=== PATIENT | male | born 1980 | race Caucasian/White ===

== ENCOUNTER 2020-05-23 10:19 | Emergency (ER) | payer BC ==
--- NOTE | 2020-05-23 11:36 | EDM.PDOC ---
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 Treatments [employer]KEY TRA[employer]ER: Reports: Dressing(s) Right Lower Leg Pain Score (Numeric/FACES): 4 - Related Data Allergies Allergy/AdvReac Type Severity Reaction Status Date / Time No Known Allergies Allergy Verified 05/23/20 10:26 Home Meds: Home Meds Omeprazole [Prilosec] 40 mg PO DAILY PRN 08/16/14 [History] Lisinopril/Hydrochlorothiazide [Lisinopril-Hctz 20-12.5 mg Tab] 1 tab PO DAILY 05/23/20 [History] amLODIPine Besylate [Amlodipine Besylate] 10 mg PO DAILY 05/23/20 [History] cephALEXin [Cephalexin] 500 mg PO TID #30 tablet 05/23/20 [Rx] Past Medical History Cardiovascular History: Reports: Hypertension Gastrointestinal History: Reports: GERD Endocrine/Metabolic History: Reports: Obesity/BMI 30+ Social & Family History - Family History Family Medical History: No Pertinent Family History - Tobacco Use Tobacco Use Status *Q: Never Tobacco User - Caffeine Use Caffeine Use: Reports: None - Recreational Drug Use Recreational Drug Use: No ED ROS GENERAL - Review of Systems Review Of Systems: See Below Constitutional: Reports: No Symptoms HEENT: Reports: No Symptoms Respiratory: Reports: No Symptoms Cardiovascular: Reports: No Symptoms Endocrine: Reports: No Symptoms GI/Abdominal: Reports: No Symptoms : Reports: No Symptoms Musculoskeletal: Reports: No Symptoms Skin: Reports: Wound ED EXAM, SKIN/RASH Exam: See Below Exam Limited By: No Limitations General Appearance: Alert, No Apparent Distress Ears: Normal External Exam, Normal Canal Nose: Normal Inspection, Normal Mucosa Throat/Mouth: Normal Inspection Head: Atraumatic, Normocephalic Neck: Normal Inspection, Supple Respiratory/Chest: No Respiratory Distress, Lungs Clear Cardiovascular: Normal Peripheral Pulses, Regular Rate, Rhythm, No Edema, No JVD, No Murmur GI/Abdominal: Normal Bowel Sounds, Soft, Non-Tender Back Exam: Normal Inspection, Full Range of Motion Extremities: Normal Inspection, Normal Range of Motion, Non-Tender Neurological: Alert, Oriented, CN II-XII Intact, Normal Cognition ED SKIN PROCEDURES - Laceration/Wound Repair Right Leg Appearance: Subcutaneous Distal NVT: Neuro & Vascular Intact Anesthetic Type: Local Local Anesthesia - Lidocaine (Xylocaine): 2% Plain Local Anesthetic Volume: 3cc Skin Prep: Chlorhexidine (Hibiciens) Closed with: Sutures Lac/Wound length In cm: 8 Suture Size: 3-0 # of Sutures: 13 Suture Type: Nylon Course - Vital Signs Text/Narrative:: UTD with immunization Last Recorded V/S: Last Vital Signs Temp Pulse 65 05/23/20 11:00 Resp 16 05/23/20 11:00 BP 135/82 05/23/20 11:00 Pulse Ox 98 05/23/20 11:00 Departure - Departure Time of Disposition: 11:35 Disposition: Home, Self-Care 01 Condition: Good Clinical Impression: Laceration - Discharge Information Prescriptions: cephALEXin [Cephalexin] 500 mg PO TID #30 tablet Instructions: Laceration Care, Adult, [id number] Referrals: Baldemar Martin PA [Primary Care Provider] - Forms: ED Department Discharge Additional Instructions: Please read discharge instructions on laceration and wound care No need to apply an antibiotic ointment because you are taking an oral antibiotics for 10 days Take ibuprofen 800 mg with tylenol 1000 mg every 8 hours as needed for pain Keflex/cephalexin 500 mg3 times daily for 10 days Removal of suture in 14 days Sepsis Event Note (ED) - Evaluation Sepsis Screening Result: No Definite Risk
[2020-05-23 12:39] VITALS: BP 135/82; PULSE 65
== END 2020-05-23 11:50 | disposition home or self-care (01) ==
LOC: FB.ED 10:19
DX: S81.811A Laceration without foreign body, right lower leg, initial encounter (principal); I10 Essential (primary) hypertension; K21.9 Gastro-esophageal reflux disease without esophagitis; E66.9 Obesity, unspecified; Z68.39 Body mass index [BMI] 39.0-39.9, adult; Z79.899 Other long term (current) drug therapy; W22.8XXA Striking against or struck by other objects, initial encounter; Y93.39 Activity, other involving climbing, rappelling and jumping off
CPT/HCPCS: 12004; 99282-25